=== PATIENT | female | born 1985 | race African-American/Black ===

== ENCOUNTER 2021-08-16 19:43 | Emergency (ER) | payer OTHER ==
[~2021-08-16] VITALS: Ht 165.1 cm; Wt 104.3 kg
[2021-08-16] MEDS ORDERED: ZITHROMAX250 MG PO (21:03)
[2021-08-16] MEDS ORDERED: TESSALON PERLE100 MG PO (21:03)
[2021-08-16 21:11] VITALS: BP 139/82
== END 2021-08-16 21:11 | disposition home or self-care (01) ==
LOC: FSED 20:10
DX: R05.9 Cough, unspecified (principal); U07.1 COVID-19; J20.9 Acute bronchitis, unspecified
CPT/HCPCS: 71046; 99283